=== PATIENT | male | born 1970 | race Caucasian/White ===

== ENCOUNTER 2018-02-24 11:29 | Emergency (ER) | payer OTHER ==
[2018-02-24 12:23] VITALS: BP 124/74
--- NOTE | 2018-02-24 12:47 | UC ---
Palpitation/Dysrhythmia HP - HPI Summary HPI Summary: ONSET OF PALPITATIONS AND MILD CHEST DISCOMFORT 4 DAYS AGO. EPISODES LASTING FOR A FEW SECONDS UP TO 5 TIMES PER DAY. DENIES SOB, DIZZINESS, NAUSEA, SWEATS. - History of Current Complaint Chief Complaint: UCChestPain Stated Complaint: CHEST PAIN Time Seen by Provider: 02/24/18 11:51 Hx Obtained From: Patient Onset/Duration: Sudden Onset Timing: Intermittent Episodes Lasting: - SEVERAL SECONDS Pain Intensity: 0 Pain Scale Used: 0-10 Numeric Character: Pounding, Skipped Beats Aggravating Factor(s): Nothing Associated Signs & Symptoms: Positive: Chest Pain - Allergy/Home Medications Allergies/Adverse Reactions: Allergies Allergy/AdvReac Type Severity Reaction Status Date / Time MS Cyclobenzaprine Allergy See Comment Verified 02/24/18 12:16 [From Flexeril] MS Penicillin V Allergy Unknown Verified 01/04/13 08:47 [Penicillin V] Reaction Details PMH/Surg Hx/FS Hx/Imm Hx - Additional Past Medical History Additional PMH: SEASONAL ALLERGIES Psychological History: Depression - Surgical History Surgical History: Yes Surgery Procedure, Year, and Place: WISDOM TEETH - Family History Known Family History: Positive: Hypertension Negative: Cardiac Disease - Social History Alcohol Use: None Substance Use Type: None Smoking Status (MU): Never Smoked Tobacco Review of Systems Constitutional: Negative Respiratory: Negative Cardiovascular: Palpitations, Chest Pain Gastrointestinal: Negative All Other Systems Reviewed And Are Negative: Yes Physical Exam Triage Information Reviewed: Yes Appearance: Well-Appearing, No Pain Distress, Well-Nourished Vital Signs: Initial Vital Signs Temp 98.9 F 02/24/18 12:17 Pulse 64 02/24/18 12:17 Resp 18 02/24/18 12:17 BP 124/74 02/24/18 12:17 Pulse Ox 100 02/24/18 12:17 Vital Signs Reviewed: Yes Eyes: Positive: Conjunctiva Clear ENT: Positive: Hearing grossly normal Neck: Positive: Supple Respiratory Exam: Normal Cardiovascular Exam: Normal Abdomen Description: Positive: Soft Musculoskeletal: Positive: No Edema Neurological: Positive: Alert Psychological: Positive: Age Appropriate Behavior Skin: Negative: rashes Diagnostics - EKG Cardiac Rate: NL - 56bpm Cardiac Rhythm: Sinus: Normal Ectopy: None ST Segment: Non-Specific - <1MM ST ELEVATION ANTERIOR LEADS Palpitations Course/Dx - Course Course Of Treatment: [place] [facility] [place] [facility] - Differential Dx/Diagnosis Provider Diagnoses: PALPITATIONS Discharge - Sign-Out/Discharge Documenting (check all that apply): Patient Departure All imaging exams completed and their final reports reviewed: No Studies - Discharge Plan Condition: Stable Disposition: TRANS HIGHER LVL OF CARE FAC Patient Education Materials: Heart Palpitations (ED) Referrals: No Primary Care Phys,NOPCP [Primary Care Provider] - Additional Instructions: GO DIRECT[place] [facility] [place] FOR FURTHER EVALUATION. YOU HAVE DECLINED TRANSFER TO THE ED BY AMBULANCE. BE ADVISED THAT BY NOT TRAVELING IN A MONITORED SETTING YOU COULD BE RISKING WORSENING OF YOUR CONDITION THAT COULD POSE A THREAT TO YOUR LIFE, HEALTH AND MEDICAL SAFETY. CALL THE NUMBER BELOW FOR ASSISTANCE IN ESTABLISHING WITH A PCP An additional resource available to assist in finding the appropriate physician for your health care needs is the [facility] ([facility]). You may contact them by calling [phone]. - Billing Disposition and Condition Condition: STABLE Disposition: Trans Higher Lvl of Care Fac
== END 2018-02-24 12:55 | disposition home health service (06) ==
LOC: UCEAST 11:29
DX: R00.2 Palpitations (principal); R07.89 Other chest pain; Z88.0 Allergy status to penicillin; Z88.8 Allergy status to other drugs, medicaments and biological substances
CPT/HCPCS: 93005; 99211; G0463

== ENCOUNTER 2018-02-24 14:19 | Emergency (ER) | payer OTHER ==
[2018-02-24 17:40] LABS: ABS Basophils 0 10^3/ul (0-0.2); ABS Eosinophils 0.2 10^3/ul (0-0.6); ABS Lymphocytes 1.5 10^3/ul (1.0-4.8); ABS Monocytes 0.3 10^3/ul (0-0.8); ABS Neutrophils 3.3 10^3/ul (1.5-7.7); ABS Nucleated RBC 0 10^3/ul; Eosinophil % 3.6 % (0-6); Hematocrit 45 % (42-52); Hemoglobin 15.6 g/dl (14.0-18.0); Lymphocyte % 27.4 % (25-47); Mean Corpuscular HGB Conc 35 g/dl (31-36); Mean Corpuscular Hemoglobin 32 pg (27-31); Mean Corpuscular Volume 90 fL (80-94); Mean Platelet Volume 7.1 um3 (7.4-10.4); Nucleated Red Blood Cells % 0; Platelet Count 311 10^3/ul (150-450); Red Blood Count 4.94 10^6/ul (4.00-5.40); Red Cell Distribution Width 13 % (10.5-15); White Blood Count 5.3 10^3/ul (3.5-10.8)
[2018-02-24 17:59] LABS: EGFR Non-African American 99.7 (>60)
--- NOTE | 2018-02-24 21:48 | ED ---
HPI Chest Pain - HPI Summary HPI Summary: Patient is a 48 y/o M w/ c/o diffuse chest pain experienced intermittently since four days ago. Chest pain episodes are reported to last seconds. He reports that he was experiencing palpitations four days ago as well, described as "heart jumping into neck". He is not experiencing palpitations at present. SOB, HULL, dizziness, N/V, calf pain/tenderness is denied. Some cough is noted, but he believes this is related to allergies. Patient states that he has had Hx of palpitations and got an EKG in 2011. Cardiac stress test was done previously as well, no abnormal cardiac findings were found. He states he was seen at and told to come to ED. No ASA given at . Patient is concerned that he might be psyching himself out as his friend of [place] recently. In the room, pain is rated 0/10. On triage, nothing is noted to aggravate/alleviate Sx. No Hx of HTN , no diabetes. Maternal grandmother had blood clots. Patient takes zyrtec, multivitamin. He notes he took three benadryl last night. Patient does not smoke , denies alcohol/drug usage. In room, pulse is 59, 100 o2, BP 138/98. Allergies/Adverse Reactions: Allergies Allergy/AdvReac Type Severity Reaction Status Date / Time cyclobenzaprine Allergy See Comment Verified 02/24/18 18:17 [From Flexeril] Penicillins Allergy Unknown Verified 02/24/18 18:17 Reaction Details - History of Current Complaint Chief Complaint: EDChestPainROMI Time Seen by Provider: 02/24/18 18:36 Hx Obtained From: Patient, Medical Records - Onset/Duration: Started Days Ago - onset four days ago Timing: Intermittent, Lasting Seconds - chest pain is reported to last seconds Initial Severity: Mild Current Severity: None - pain is denied presently Pain Intensity: 0 Pain Scale Used: 0-10 Numeric - 0/10 Chest Pain Location: Diffuse Chest Pain Radiates: No Character: Other: - awareness of heart beating Aggravating Factor(s): Nothing Alleviating Factor(s): Nothing Associated Signs and Symptoms: Positive: Chest Pain, Palpitations. Negative: Dizziness, Shortness of Breath, Nausea, Calf Pain/Swelling - NEGATIVE: tenderness, Vomiting Related History: Seasonal Allergies - Allergy/Home Medications Allergies/Adverse Reactions: Allergies Allergy/AdvReac Type Severity Reaction Status Date / Time cyclobenzaprine Allergy See Comment Verified 02/24/18 18:17 [From Flexeril] Penicillins Allergy Unknown Verified 02/24/18 18:17 Reaction Details PMH/Surg Hx/FS Hx/Imm Hx Previously Healthy: Yes Endocrine/Hematology History: Denies: Hx Diabetes, Hx Thyroid Disease Cardiovascular History: Denies: Hx Hypercholesterolemia, Hx Hypertension, Hx Pacemaker/ICD, Hx Peripheral Vascular Disease Respiratory History: Denies: Hx Asthma, Hx Chronic Obstructive Pulmonary Disease (COPD) GI History: Denies: Hx Ulcer Musculoskeletal History: Denies: Hx Arthritis, Hx Rheumatoid Arthritis, Hx Osteoporosis, Hx Scoliosis Sensory History: Denies: Hx Cataracts, Hx Contacts or Glasses, Hx Glaucoma, Hx Hearing Aid Opthamlomology History: Denies: Hx Cataracts, Hx Contacts or Glasses, Hx Glaucoma Neurological History: Denies: Hx Headaches, Hx Seizures, Hx Transient Ischemic Attacks (TIA), Other Neuro Impairments/Disorders Psychiatric History: Denies: Hx Anxiety, Hx Depression, Hx Panic Disorder - Surgical History Surgery Procedure, Year, and Place: WISDOM TEETH - Immunization History Immunizations Up to Date: Yes Infectious Disease History: No Infectious Disease History: Denies: Hx Clostridium Difficile, Hx Hepatitis, Hx Human Immunodeficiency Virus (HIV), Hx of Known/Suspected MRSA, Traveled Outside the [place] in Last 30 Days - Family History Known Family History: Positive: Hypertension, Other - blood clots in maternal grandmother - Social History Lives: With Family Alcohol Use: None Substance Use Type: Reports: None Smoking Status (MU): Never Smoked Tobacco Review of Systems Constitutional: Negative Positive: Palpitations, Chest Pain Positive: Cough. Negative: Shortness Of Breath Negative: Vomiting, Nausea Positive: Other - NEGATIVE: calf pain/tenderness Skin: Negative Neurological: Other - NEGATIVE: dizziness Negative: Headache Psychological: Normal All Other Systems Reviewed And Are Negative: Yes Physical Exam - Summary Physical Exam Summary: Appearance: Well-appearing, no pain distress, well-nourished Skin: Warm, color reflects adequate perfusion, dry Head: Normal Head/Face inspection, atraumatic Eyes: Conjunctiva clear ENT: Normal inspection Neck: Supple, no nodes, no JVD Respiratory: Lungs clear, normal breath sounds, no respiratory distress Cardio: RRR, No murmur, pulses normal, brisk capillary refill Abdomen: Soft, nontender Bowel sounds: Present Musculoskeletal: Strength Intact/ROM intact, no calf tenderness, no edema. Psychological: Normal Neuro: Alert, muscle tone normal, no focal deficit Triage Information Reviewed: Yes Vital Signs On Initial Exam: Initial Vitals Temp Pulse Resp BP Pulse Ox 98.1 F 77 16 126/85 99 02/24/18 14:24 02/24/18 14:24 02/24/18 14:24 02/24/18 14:24 02/24/18 14:24 Vital Signs Reviewed: Yes Diagnostics - Vital Signs Vital Signs Temp Pulse Resp BP Pulse Ox 02/24/18 21:00 72 21 97 02/24/18 20:42 60 18 136/86 100 02/24/18 20:09 62 17 130/78 100 02/24/18 20:00 71 15 99 02/24/18 19:40 53 20 118/84 100 02/24/18 19:09 55 17 126/85 99 02/24/18 19:00 52 16 99 02/24/18 18:43 69 19 140/94 100 02/24/18 18:39 65 24 139/96 100 02/24/18 18:11 56 11 100 02/24/18 18:09 62 135/98 100 02/24/18 16:36 97.8 F 60 16 118/85 97 02/24/18 14:24 98.1 F 77 16 126/85 99 - Laboratory Lab Results: Lab Results 02/24/18 02/24/18 02/24/18 Range/Units 17:32 17:32 17:32 WBC 5.3 (3.5-10.8) 10^3/ul RBC 4.94 (4.00-5.40) 10^6/ul Hgb 15.6 (14.0-18.0) g/dl Hct 45 (42-52) % MCV 90 (80-94) fL MCH 32 H (27-31) pg MCHC 35 (31-36) g/dl RDW 13 (10.5-15) % Plt Count 311 (150-450) 10^3/ul MPV 7.1 L (7.4-10.4) um3 Neut % (Auto) 62.1 (38-83) % Lymph % (Auto) 27.4 (25-47) % [place] % (Auto) 6.0 (0-7) % Eos % (Auto) 3.6 (0-6) % Baso % (Auto) 0.9 (0-2) % Absolute Neuts (auto) 3.3 (1.5-7.7) 10^3/ul Absolute Lymphs (auto) 1.5 (1.0-4.8) 10^3/ul Absolute Monos (auto) 0.3 (0-0.8) 10^3/ul Absolute Eos (auto) 0.2 (0-0.6) 10^3/ul Absolute Basos (auto) 0 (0-0.2) 10^3/ul Absolute Nucleated RBC 0 10^3/ul Nucleated RBC % 0 D-Dimer, Quantitative (Less Than 230) ng/mL Sodium 140 (135-145) mmol/L Potassium 3.8 (3.5-5.0) mmol/L Chloride 103 (101-111) mmol/L Carbon Dioxide 31 (22-32) mmol/L Anion Gap 6 (2-11) mmol/L BUN 11 (6-24) mg/dL Creatinine 0.83 (0.67-1.17) mg/dL Est GFR ( Amer) 120.7 (>60) Est GFR (Non-Af Amer) 99.7 (>60) BUN/Creatinine Ratio 13.3 (8-20) Glucose 87 (70-100) mg/dL Lactic Acid 0.8 (0.5-2.0) mmol/L Calcium 9.7 (8.6-10.3) mg/dL Magnesium 2.2 (1.9-2.7) mg/dL Total Bilirubin 1.60 H (0.2-1.0) mg/dL AST 21 (13-39) U/L ALT 26 (7-52) U/L Alkaline Phosphatase 36 (34-104) U/L Troponin I 0.00 (<0.04) ng/mL Total Protein 7.5 (6.4-8.9) g/dL Albumin 4.7 (3.2-5.2) g/dL Globulin 2.8 (2-4) g/dL Albumin/Globulin Ratio 1.7 (1-3) TSH 1.77 (0.34-5.60) mcIU/mL 02/24/18 02/24/18 Range/Units 20:40 20:40 WBC (3.5-10.8) 10^3/ul RBC (4.00-5.40) 10^6/ul Hgb (14.0-18.0) g/dl Hct (42-52) % MCV (80-94) fL MCH (27-31) pg MCHC (31-36) g/dl RDW (10.5-15) % Plt Count (150-450) 10^3/ul MPV (7.4-10.4) um3 Neut % (Auto) (38-83) % Lymph % (Auto) (25-47) % [place] % (Auto) (0-7) % Eos % (Auto) (0-6) % Baso % (Auto) (0-2) % Absolute Neuts (auto) (1.5-7.7) 10^3/ul Absolute Lymphs (auto) (1.0-4.8) 10^3/ul Absolute Monos (auto) (0-0.8) 10^3/ul Absolute Eos (auto) (0-0.6) 10^3/ul Absolute Basos (auto) (0-0.2) 10^3/ul Absolute Nucleated RBC 10^3/ul Nucleated RBC % D-Dimer, Quantitative < 200 (Less Than 230) ng/mL Sodium (135-145) mmol/L Potassium (3.5-5.0) mmol/L Chloride (101-111) mmol/L Carbon Dioxide (22-32) mmol/L Anion Gap (2-11) mmol/L BUN (6-24) mg/dL Creatinine (0.67-1.17) mg/dL Est GFR ( Amer) (>60) Est GFR (Non-Af Amer) (>60) BUN/Creatinine Ratio (8-20) Glucose (70-100) mg/dL Lactic Acid (0.5-2.0) mmol/L Calcium (8.6-10.3) mg/dL Magnesium (1.9-2.7) mg/dL Total Bilirubin (0.2-1.0) mg/dL AST (13-39) U/L ALT (7-52) U/L Alkaline Phosphatase (34-104) U/L Troponin I 0.00 (<0.04) ng/mL Total Protein (6.4-8.9) g/dL Albumin (3.2-5.2) g/dL Globulin (2-4) g/dL Albumin/Globulin Ratio (1-3) TSH (0.34-5.60) mcIU/mL Result Diagrams: 02/24/18 17:32 02/24/18 17:32 Lab Statement: Any lab studies that have been ordered have been reviewed, and results considered in the medical decision making process. - EKG 1810 Cardiac Rate: Bradycardia - rate of 57 BPM EKG Rhythm: Sinus Bradycardia EKG Interpretation: nml AVIVCT, nml QTc, nml axis EKG Comparison: No Significant Change - compared with EKG from 02/24 due at [facility]. Re-Evaluation - Re-Evaluation First Eval Re-Evaluation Time: 21:58 Change: Improved Comment: Patient reports no chest pain and wants to be discharged. He was advised to follow up with PCP; patient understands and agrees with this plan. Second Eval Re-Evaluation Time: 22:01 Change: Unchanged Comment: In discussing discharge pt relays that he felt palpitations and noted different complexes on the monitor at the times he felt the palpitations. Pt related times and monitor tracings were checked at those times. Monitor showed single isolated, unifocal PVC's. Pt had not chest pain with these or while in the ED. Pt is advised to decrease caffeine, stress, avoid lack of sleep and to have definite follow up with the [facility] in the next 1-2 days and to get established with a PCP, and to return to the ED if sxs worsen. Chest Pain Course/Dx - Course Course Of Treatment: Patient is a 48 y/o M w/ c/o diffuse chest pain experienced intermittently since four days ago. Chest pain episodes are reported to last seconds. He reports that he was experiencing palpitations four days ago as well, described as "heart jumping into neck". He is not experiencing palpitations at present. SOB, HULL, dizziness, N/V, calf pain/ tenderness is denied. Some cough is noted, but he believes this is related to allergies. Patient states that he has had Hx of palpitations and got an EKG in 2011. Cardiac stress test was done previously as well, no abnormal cardiac findings were found. He states he was seen at and told to come to ED. No ASA given at . Physical exam showed no concerning findings. EKG showed sinus albert at 57 bpm, nml AVIVCT, nml QTc, nml axis, no significant change from EKG done [facility]. Labs showed trop is negative, no concerning findings on labs. 2157 - Patient reports no chest pain and wants to be discharged. Pt is JAVIER score zero. Pt noted changes on the monitor tech when he felt palpitations and when correlation of those times and the monitor tracing, pt was noted with single, isolated, unifocal PVC's, less than 10 in the entire time monitored in the ED. He was advised to follow up with [facility] and to get established with a PCP. The patient understands and agrees with this plan. Dx of palpitations, elevated bilirubin, gilbert's disease, PVC' s. - Chest Pain Differential Diagnosis/HQI/PQRI: Acute DE, ACS, Angina, Chest Wall, GI Disease, Lower Respiratory Infection, Pulmonary Edema, Pulmonary Embolism - Diagnoses Provider Diagnoses: Palpitations, Elevated bilirubin, Gilbert's disease, Chest pain, PVCs ( premature ventricular contractions) Discharge - Sign-Out/Discharge Documenting (check all that apply): Patient Departure - discharge - Discharge Plan Condition: Stable Disposition: HOME Patient Education Materials: Heart Palpitations (ED) Referrals: [facility] [Outside] - 1 Day [facility] [Outside] - As Soon As Possible (call this number to get established with a primary care provider as soon as possible ) Additional Instructions: We gave you a copy of your labs and the rhythm strips showing single, isolated PVC's. We did not find a serious cause of these palpitations and PVC's. You will want to have definite follow up with the [facility] clinic in the next 1-2 days. You have mild elevation of your total bilirubin which may represent a congenital abnormality called Gilbert's syndrome, which is not clinically significant. If you have chest pain, you need to call 911 and return to the ER. Return to the ER if you have new or worsening symptoms. - Billing Disposition and Condition Condition: STABLE Disposition: Home - Attestation Statements Document Initiated by Scribe: Yes Documenting Scribe: Dejon Saenz Provider For Whom Hazel is Documenting (Include Credential): MD Hazel Gómez Attestation: IDejon , scribed for Maryjane Borja MD on 02/26/18 at 0207. Scribe Documentation Reviewed: Yes Provider Attestation: The documentation as recorded by the scribeDejon accurately reflects the service I personally performed and the decisions made by me, Maryjane Borja MD
[2018-02-24 22:21] VITALS: BP 117/82
== END 2018-02-24 22:23 | disposition home or self-care (01) ==
LOC: ED 14:19
DX: R00.2 Palpitations (principal); E80.7 Disorder of bilirubin metabolism, unspecified; E80.4 Gilbert syndrome; R07.89 Other chest pain; R05 Cough; Z88.0 Allergy status to penicillin; Z88.8 Allergy status to other drugs, medicaments and biological substances
CPT/HCPCS: 36415; 80053; 83605; 83735; 84443; 84484; 85025; 85379; 93005; 99283

== ENCOUNTER 2018-12-20 12:57 | Emergency (ER) | payer OTHER ==
[2018-12-20 13:05] VITALS: BP 120/79
--- NOTE | 2018-12-20 13:25 | UC ---
Ear Complaint HPI - HPI Summary HPI Summary: Pt reports mild vertigo and R ear congestion. fEELS she needs it flushed. denies n/v, vision changes or hearing changes. of note he has hx of vertigo and feels its very mild today. denies recent swimming - History of Current Complaint Chief Complaint: UCEar Stated Complaint: EAR PLUSHING Time Seen by Provider: 12/20/18 12:59 Hx Obtained From: Patient Pain Intensity: 1 Pain Scale Used: 0-10 Numeric Aggravating Factors: Nothing Alleviating Factors: Nothing - Allergies/Home Medications Allergies/Adverse Reactions: Allergies Allergy/AdvReac Type Severity Reaction Status Date / Time cyclobenzaprine Allergy See Comment Verified 12/20/18 13:06 [From Flexeril] Penicillins Allergy Unknown Verified 12/20/18 13:06 Reaction Details PMH/Surg Hx/FS Hx/Imm Hx - Additional Past Medical History Additional PMH: no chronic issue Previously Healthy: Yes - Surgical History Surgical History: Yes Surgery Procedure, Year, and Place: WISDOM TEETH - Family History Known Family History: Positive: Hypertension, Diabetes, Other - blood clots in maternal grandmother Negative: Cardiac Disease - Social History Alcohol Use: None Substance Use Type: None Smoking Status (MU): Never Smoked Tobacco Review of Systems All Other Systems Reviewed And Are Negative: Yes Constitutional: Negative: Fever ENT: Negative: Ear Ache Respiratory: Positive: Negative Cardiovascular: Positive: Negative Neurological: Negative: Other - dizziness Physical Exam Triage Information Reviewed: Yes Appearance: Well-Appearing Vital Signs: Initial Vital Signs Temp 98 F 12/20/18 13:03 Pulse 66 12/20/18 13:03 Resp 16 12/20/18 13:03 BP 120/79 12/20/18 13:03 Pulse Ox 100 12/20/18 13:03 Vital Signs Reviewed: Yes ENT: Positive: TMs normal - bilat, Other - canals bilat are essentially clear Ear Complaint Course/Dx - Course Course Of Treatment: R ear muffled feeling starting today. He usually gets ears flushed but there is not much cerumen to flush. offered flush either way and he declined. has known vertigo and today mild case. no hearing changes. vitals good. - Differential Dx/Diagnosis Differential Diagnosis/HQI/PQRI: Cerumen Impaction, Otitis Externa Provider Diagnosis: Ear discomfort Discharge - Sign-Out/Discharge Documenting (check all that apply): Patient Departure All imaging exams completed and their final reports reviewed: No Studies - Discharge Plan Condition: Good Disposition: HOME Patient Education Materials: Vertigo (ED) Referrals: Lucas De Guzman MD [Primary Care Provider] - Additional Instructions: if worsening please consider seeing an ENT specialist. - Billing Disposition and Condition Condition: GOOD Disposition: Home - Attestation Statements Provider Attestation: This patient was not seen by me. I was available to consult. RACHEAL
== END 2018-12-20 13:33 | disposition home or self-care (01) ==
LOC: UCEAST 12:57
DX: H92.02 Otalgia, left ear (principal); R42 Dizziness and giddiness; Z88.0 Allergy status to penicillin
CPT/HCPCS: 99211; G0463